=== PATIENT | male | born 1935 | race Hispanic/Latino ===

== ENCOUNTER 2017-01-19 19:06 | Emergency (ER) | payer MEDICARE, OTHER ==
[~2017-01-19] VITALS: Ht 162.6 cm; Wt 174.2 kg
[~2017-01-19 19:06] MED LIST: GLYB5TAB3 PO; INSU100C4 SUBQ; LISI1TAB PO; MTF850T PO; PIOG45TA19 PO
[2017-01-19 19:10] VITALS: BP 146/86; PULSE 78; RESP 16; O2SAT 93
[2017-01-19 19:57] LABS: BASOPHILS % (AUTO) 0.4 % (0-3); EOSINOPHILS % (AUTO) 5.8 % (0-5); MONOCYTES % (AUTO) 6.3 % (4-12); Mean Corpuscular Hemoglobin 32.9 pg (27.0-35.0); Mean Corpuscular Volume 96.7 fL (81-100); NEUTROPHILS % (AUTO) 62.5 % (40-74); Platelet Count 144 bil/L (150-400)
[2017-01-19 20:15] LABS: Magnesium 1.5 mg/dL (1.6-2.6)
--- NOTE | 2017-01-19 20:36 | ED.REPORT ---
HPI-General Illness Date of Service January 19, 2017 ED Provider: Dr. Jim Gutiérrez The patient is a 81 year old male w/ a hx of DM and HTN who presents to the ED accompanied by his daughter due to high blood sugar levels over the past week. He came to visit her in [place] last week but forgot to bring his insulin. A few days ago he began to have elevated blood sugar. Yesterday morning his sugar was 308. Today it is in the 400's. He denies fever, LOC, and blurred vision. Nursing Notes Stated Complaint: DIABETES Chief Complaint: General Complaint Nursing Notes Reviewed: Yes Allergies: Coded Allergies: No Known Allergies (Unverified Allergy, Unknown, 01/19/17) Scheduled Lisin/HCTZ-Expunged, Do Not Renew! (Lisin/HCTZ 01/09-Expunged, Do Not Renew!) 1 Each Tablet 1 EACH PO DAILY Metformin-Expunged Drug, Do Not Renew! (Metformin-Expunged Drug, Do Not Renew!) 850 Mg Tablet 1 TAB PO DAILY TAKE WITH EVENING MEAL Med from [facility] Pioglitazone-Expunged Drug, Do Not Renew! (Pioglitazone-Expunged Drug, Do Not Renew!) 45 Mg Tablet 45 MG PO DAILY Miscellaneous Medications Glyburide-Expunged Drug, Do Not Renew! (Diabeta-Expunged Drug, Do Not Renew!) 5 Mg Tablet 5 MG PO Meds from [facility] google and this is equivilent Insulin Glargine-Expunged Drug, Do Not Renew! (Lantus-Expunged Drug, Do Not Renew!) 100 Units/Ml Pen.ij.kit 5 UNIT SUBQ Start with 5 units then increase 1 unit a day until BGL at 120 General Time Seen by MD: 20:36 Chief Complaint Other (high blood sugar) Hx Obtained From: Daughter Arrived By: Walk-in Sudden in Onset?: Yes Onset Occurred: 1 week ago Symptom Duration: Since onset Recent Healthcare: No recent doctor visit, No recent hospitalization Similar Sx Previous: No Past Medical History Past Medical History HTN DM Smoking History Unknown if Ever Smoker Social History Other Social History: Good social support, Local resident Ambulatory Status Independent Review of Systems high blood sugar Full Review of Systems Constitutional: Denies: Fever Eyes: Denies: Blurred bilateral, Visual loss bilateral Ears / Nose / Throat: Denies: Ear drainage right Respiratory: Denies: Hemoptysis Cardiovascular: Denies: Chest pain, Dyspnea on exertion GI: Denies: Abdominal pain Male: Denies Dysuria, Denies Flank pain Musculoskeletal: Denies: Back pain, Extremity pain Neurologic: Denies: Change LOC Complete sys rev & neg: except as marked. Physical Exam Vital Signs Vital Signs Date Time Temp Pulse Resp B/P Pulse Ox O2 Delivery O2 Flow Rate FiO2 01/19/17 22:47 76 16 134/88 94 Room Air 01/19/17 19:10 78 16 146/86 93 Room Air Initial VS: Reviewed General/Constitutional: Well-developed Head / Eyes: Atraumatic, Normocephalic ENT: Mucous membranes moist, Conjunctiva normal Respiratory: Breath sounds normal, Clear to auscultation, No respiratory distress Cardiovascular: Regular rate & rhythm, Heart sounds normal, Intact distal pulses Abdomen / GI: Soft, Non-tender, No guarding, No rebound, No distention Back: No CVA tenderness Extremities: Vascular intact, Neuro intact, No swelling, No tenderness Skin: Warm, Dry Interpretation & Diagnostics Lab Results Interpretation Result Diagram: 01/19/17193901/19/171939 Test 01/19/17 19:40 White Blood Count 5.5th/mm3 (3.8-10.1) Red Blood Count 4.25mil/mm3 (4.40-5.80) Hemoglobin 14.0g/dL (13.8-17.2) Hematocrit 41.1% (41.0-50.0) Mean Corpuscular Volume 96.7fL (81-100) Mean Corpuscular Hemoglobin 32.9pg (27.0-35.0) Mean Corpuscular Hemoglobin Concent 34.1% (32.0-37.0) Red Cell Distribution Width 11.6% (12.3-15.4) Platelet Count 144bil/L (150-400) Neutrophils (%) (Auto) 62.5% (40-74) Lymphocytes (%) (Auto) 25.0% (14-46) Monocytes (%) (Auto) 6.3% (4-12) Eosinophils (%) (Auto) 5.8% (0-5) Basophils (%) (Auto) 0.4% (0-3) Sodium Level 132mEq/L (134-144) Potassium Level 4.6mEq/L (3.5-5.2) Chloride Level 95mEq/L (97-108) Carbon Dioxide Level 24mmol/L (18-29) Blood Urea Nitrogen 23mg/dL (8-27) Creatinine 0.97mg/dL (0.76-1.27) Estimat Glomerular Filtration Rate 79mL/min (>59) Glucose Level 440mg/dL (60-99) Calcium Level 9.7mg/dL (8.5-10.1) Magnesium Level 1.5mg/dL (1.6-2.6) Total Bilirubin 0.2mg/dL (0.0-1.2) Aspartate Amino Transf (AST/SGOT) 18U/L (0-50) Alanine Aminotransferase (ALT/SGPT) 21U/L (0-44) Alkaline Phosphatase 80U/L (25-160) Troponin T 0.010ug/L (0.0-0.011) Total Protein 7.4g/dL (6.4-8.4) Albumin 4.0g/dL (3.4-5.0) Hold Cline Top Tube Received (Received) Ketones Negative (Negative) Re-Eval/Medical Decision Med Decision/Clinical Course 81-year-old insulin-dependent diabetic is up visiting from [place]. He forgot his insulin. He is hyperglycemic. He has no other symptoms. Labs show hyperglycemia without evidence of acute coronary syndrome or diabetic ketoacidosis. EKG is reassuring. Sinus rhythm. ST segments look normal to me. He was medicated with subcutaneous insulin his blood sugar came down to roughly 300. Evidently his doctor wants him to be between 200-300 I will prescribe Regular Insulin 5 units after meals for blood sugar greater than 250 as his prior sliding scale. Recommend he checks his blood sugar minimally 4 times a day. Close outpatient follow-up recommended. Time of Eval: 22:30 Re-Evaluation/Progress Note: Pt rechecked. Informed pt of diagnosis of hyperglycemia and need to monitor blood sugar more carefully. Plan for discharge. F/U and RTER warnings given. Pt understands and agrees with plan. All questions addressed. Counseled Regarding: Diagnosis, Lab results, Need for follow-up, When/why to return to ED Discharge & Departure Primary Impression: Hyperglycemia due to type 2 diabetes mellitus Diabetes mellitus usp insulin use: with usp use Qualified Code: E11.65 - Type 2 diabetes mellitus with hyperglycemia Disposition: Home Discharge Condition All VS Reviewed: Yes Condition: Stable Patient Instructions: Diabetes Mellitus Type 1 in Children (GEN) Additional Instructions: Check your blood sugar 4 times daily. Follow the sliding scale as instructed. 5 units subcutaneous after meals for blood sugar greater than 250. Set up a follow-up with her primary care physician or the referral clinic. Return if any problems or any new or worsening symptoms. Referrals: [facility] (PCP) [facility] Scribe Attestation Portion of this note were transcribed by Therese Mccollum. I, Dr. Jim Gutiérrez, personally performed the history, physical exam, and medical decision-making: I reviewed and confirmed the accuracy for the information in the transcribed note. Signed by: azael Gutiérrez, 01/19/17 2200 copies to: [facility]; [facility] Jim Gutiérrez DO January 19, 2017 20:36 Therese Mccollum January 19, 2017 20:52
[2017-01-19] MEDS ORDERED: (U-500) Insulin Regluar, Human 500 Unit/mL Syringe SUBQ ONE (20:50)
[2017-01-19] MEDS ORDERED: Insulin Human REGular 300 Unit/3 mL Inj SUBQ ONE (21:00)
[2017-01-19 22:47] VITALS: BP 134/88; PULSE 76; RESP 16; O2SAT 94
== END 2017-01-19 22:48 | disposition home or self-care (01) ==
LOC: SED 19:06
DX: E11.65 Type 2 diabetes mellitus with hyperglycemia (principal); I10 Essential (primary) hypertension; Z79.84 Long term (current) use of oral hypoglycemic drugs; Z79.4 Long term (current) use of insulin; Z79.899 Other long term (current) drug therapy
CPT/HCPCS: 36415; 80053; 82009; 82948; 83735; 84484; 85025; 93005; 99285; J1815